=== PATIENT | male | born 1965 | race African-American/Black ===

== ENCOUNTER 2019-03-05 08:09 | Emergency (ER) | payer OTHER ==
[2019-03-05] MEDS ORDERED: IBUPROFEN 400 MG TAB ONE (08:35)
[2019-03-05] MEDS ORDERED: ACETAMINOPHEN 325 MG TABLET ONE (08:35)
--- NOTE | 2019-03-05 09:25 | ER ---
Nurse's Notes [facility] Name: Serena Marcelo Age: 53 yrs Sex: Male : 1965 Arrival Date: 03/05/2019 Time: 08:11 Bed 20 Private MD: Gurwinder Plascencia H Diagnosis: Pain in right knee Presentation: 03/05 08:24 Acuity: JEREMIAH 4 ss 08:25 Presenting complaint: Patient states: was playing basketball last night and heard a pop em in the right knee, denies other injuries. Transition of care: patient was not received from another setting of care. Onset of symptoms was March 04, 2019. Risk Assessment: Do you want to hurt yourself or someone else? Patient reports no desire to harm self or others. Initial Sepsis Screen: Does the patient meet any 2 criteria? No. Patient's initial sepsis screen is negative. Does the patient have a suspected source of infection? No. Patient's initial sepsis screen is negative. Care prior to arrival: 08:25 Method Of Arrival: Wheelchair em Historical: - Allergies: 08:29 No Known Allergies; em - Home Meds: 08:29 Lisinopril Oral [Active]; Allopurinol Oral [Active]; em - PMHx: 08:29 Hypertension; Gout; em - PSHx: 08:29 Left wrist sx; Left knee sx; em - Immunization history:: Adult Immunizations up to date. - Social history:: Smoking status: Patient/guardian denies using tobacco. - Ebola Screening: : Patient negative for fever greater than or equal to 101.5 degrees Fahrenheit, and additional compatible Ebola Virus Disease symptoms Patient denies exposure to infectious person Patient denies travel to an Ebola-affected area in the 21 days before illness onset No symptoms or risks identified at this time. Screenin:32 Abuse screen: Denies threats or abuse. Nutritional screening: No deficits noted. em Tuberculosis screening: No symptoms or risk factors identified. Fall Risk None identified. Assessment: 08:29 General: Appears in no apparent distress. comfortable, Behavior is calm, cooperative. em Pain: Complains of pain in right knee Pain currently is 6 out of 10 on a pain scale. Aggravated by exercise, increased activity, weight bearing. Neuro: Level of Consciousness is awake, alert, obeys commands, Oriented to person, place, time, situation, Appropriate for age. Cardiovascular: Capillary refill < 3 seconds Patient's skin is warm and dry. Respiratory: Airway is patent Respiratory effort is even, unlabored, Respiratory pattern is regular, symmetrical. Derm: Skin is intact, is healthy with good turgor, Skin is pink, warm \T\ dry. Musculoskeletal: Capillary refill < 3 seconds, Range of motion: limited in right knee Swelling present in right knee. 08:35 General: The previous assessment is accurate, call light remains within reach. . ss Vital Signs: 08:29 BP 125 / 84; Pulse 81; Resp 18; Temp 98.4(O); Pulse Ox 96% on R/A; Weight 149.69 kg; em Height 6 ft. 4 in. (193.04 cm); Pain 6/10; 08:29 Body Mass Index 40.17 (149.69 kg, 193.04 cm) em ED Course: 08:11 Patient arrived in ED. as 08:11 Gurwinder Plascencia DO is Private Physician. as 08:18 Ted Alejo LVN is Primary Nurse. em 08:22 Maximus Lyon PA is PHCP. cp 08:22 Satya Esparza MD is Attending Physician. cp 08:24 Triage completed. ss 08:29 Arm band placed on. em 08:32 Patient has correct armband on for positive identification. Bed in low position. Call em light in reach. Pulse ox on. NIBP on. 08:48 X-ray completed. Portable x-ray completed in exam room. Patient tolerated procedure mh1 well. 08:49 XRAY Knee RIGHT 3 view In Process Unspecified. EDMS 09:24 Ferdinand Martinez MD is Referral Physician. cp 09:24 Referral Physician role handed off by Ferdinand Martinez MD cp 09:24 Ferdinand Martinez MD is Referral Physician. cp 09:29 No provider procedures requiring assistance completed. Patient did not have IV access em during this emergency room visit. Administered Medications: 08:38 Drug: Ibuprofen 800 mg Route: PO; em 09:24 Follow up: Response: No adverse reaction; Pain is decreased em 08:38 Drug: Tylenol 650 mg Route: PO; em 09:24 Follow up: Response: No adverse reaction; Pain is decreased em Outcome: 09:25 Discharge ordered by . cp 09:29 Discharged to home via wheelchair. em 09:29 Condition: good 09:29 Discharge instructions given to patient, Instructed on discharge instructions, follow up and referral plans. medication usage, crutch walking, Demonstrated understanding of instructions, follow-up care, medications, crutch walking, Prescriptions given X 2. 09:36 Patient left the ED. em Signatures: Dispatcher [employer] EDAL Ivy Henriquez [facility] Ted Alejo, LEATHER SOFTENER LEATHER SOFTENER Natalya Turner Shelby, DIMITRY RN ss Maximus Lyon, PA PA cp
--- NOTE | 2019-03-05 09:26 | EDPHYS ---
Physician Documentation [facility] Name: Serena Marcelo Age: 53 yrs Sex: Male : 1965 Arrival Date: 03/05/2019 Time: 08:11 Bed 20 Private MD: Gurwinder Plascencia H ED Physician Satya Esparza HPI: 03/05 08:40 This 53 yrs old Black Male presents to ER via Wheelchair with complaints of Knee Injury.cp 08:40 The patient presents with decreased range of motion, an injury. The complaints affect cp the right knee. Context: resulted from playing sports, basketball, the patient can fully bear weight, the patient is able to ambulate, with moderate difficulty. 08:40 Onset: The symptoms/episode began/occurred yesterday. Modifying factors: the symptoms cp are aggravated by movement, bending knee. Associated signs and symptoms: Pertinent negatives calf tenderness, fever, numbness, warmth, weakness. Treatment prior to arrival includes: no previous treatment. Historical: - Allergies: 08:29 No Known Allergies; em - Home Meds: 08:29 Lisinopril Oral [Active]; Allopurinol Oral [Active]; em - PMHx: 08:29 Hypertension; Gout; em - PSHx: 08:29 Left wrist sx; Left knee sx; em - Immunization history:: Adult Immunizations up to date. - Social history:: Smoking status: Patient/guardian denies using tobacco. - Ebola Screening: : Patient negative for fever greater than or equal to 101.5 degrees Fahrenheit, and additional compatible Ebola Virus Disease symptoms Patient denies exposure to infectious person Patient denies travel to an Ebola-affected area in the 21 days before illness onset No symptoms or risks identified at this time. ROS: 08:45 Constitutional: Negative for body aches, chills, fever, poor PO intake. cp 08:45 Eyes: Negative for injury, pain, redness, and discharge. cp 08:45 ENT: Negative for drainage from ear(s), ear pain, sore throat, difficulty swallowing, difficulty handling secretions. 08:45 Cardiovascular: Negative for chest pain, palpitations. 08:45 Respiratory: Negative for cough, shortness of breath, wheezing. 08:45 Abdomen/GI: Negative for abdominal pain, nausea, vomiting, and diarrhea. 08:45 Back: Negative for pain at rest, pain with movement. 08:45 MS/extremity: Positive for pain, tenderness, of the right knee, Negative for decreased range of motion, deformity, paresthesias, rash. 08:45 Skin: Negative for cellulitis. 08:45 All other systems are negative. Exam: 08:55 Constitutional: The patient appears in no acute distress, alert, awake, non-toxic, well cp developed, well nourished, obese. 08:55 Head/Face: Normocephalic, atraumatic. cp 08:55 Eyes: Periorbital structures: appear normal, Conjunctiva: normal, no exudate, no injection, Sclera: no appreciated abnormality, Lids and lashes: appear normal, bilaterally. 08:55 ENT: External ear(s): are unremarkable, Nose: is normal, Mouth: is normal. 08:55 Chest/axilla: Inspection: normal, Palpation: is normal, no crepitus, no tenderness. 08:55 Cardiovascular: Rate: normal, Rhythm: regular, Edema: JVD: is not appreciated. 08:55 Respiratory: the patient does not display signs of respiratory distress. 08:55 Abdomen/GI: Inspection: abdomen appears normal, Palpation: soft, in all quadrants. 08:55 Back: pain, is absent, ROM is normal. 08:55 Musculoskeletal/extremity: ROM: limited passive range of motion due to pain, right knee, Perfusion: the extremity is normally perfused throughout, Sensation intact. Joints: All joints are normal except the right knee displays pain at rest, painful range of motion, swelling, tenderness. 08:55 Skin: cellulitis, is not appreciated, no rash present. Vital Signs: 08:29 BP 125 / 84; Pulse 81; Resp 18; Temp 98.4(O); Pulse Ox 96% on R/A; Weight 149.69 kg; em Height 6 ft. 4 in. (193.04 cm); Pain 6/10; 08:29 Body Mass Index 40.17 (149.69 kg, 193.04 cm) em Procedures: 09:23 Crutch training provided to patient and/or family. Return demonstration given. cp MDM: 08:27 Patient medically screened. cp 09:00 Differential diagnosis: dislocation, closed fracture, contusion, tendonitis. cp 09:20 Data reviewed: vital signs, nurses notes, EMS record, radiologic studies, plain films. cp Test interpretation: by ED physician or midlevel provider: plain radiologic studies, xrays of left knee negative for fracture. 09:23 Counseling: I had a detailed discussion with the patient and/or guardian regarding: the cp historical points, exam findings, and any diagnostic results supporting the discharge/admit diagnosis, radiology results, the need for outpatient follow up, a orthopedic surgeon, to return to the emergency department if symptoms worsen or persist or if there are any questions or concerns that arise at home. Response to treatment: the patient's symptoms have markedly improved after treatment, and as a result, I will discharge patient. 03/05 08:33 Order name: XRAY Knee RIGHT 3 view cp Administered Medications: 08:38 Drug: Ibuprofen 800 mg Route: PO; em 09:24 Follow up: Response: No adverse reaction; Pain is decreased em 08:38 Drug: Tylenol 650 mg Route: PO; em 09:24 Follow up: Response: No adverse reaction; Pain is decreased em Disposition: 03/05/19 09:25 Discharged to Home. Impression: Pain in right knee. - Condition is Stable. - Discharge Instructions: Knee Pain. - Prescriptions for Naprosyn 500 mg Oral Tablet - take 1 tablet by ORAL route 2 times per day take with food; 20 tablet. Tramadol 50 mg Oral Tablet - take 1 tablet by ORAL route every 8 hours as needed; 15 tablet. - Medication Reconciliation Form, Thank You Letter, Antibiotic Education, Prescription Opioid Use form. - Follow up: Ferdinand Martinez MD; When: 2 - 3 days; Reason: Worsening of condition. Follow up: Ferdinand Martinez MD; When: 5 - 6 days; Reason: Worsening of condition. - Problem is new. - Symptoms have improved. Signatures: Dispatcher [employer] EDTed Honeycutt LVN ELECTRONIC OPERATOR em Sonali, JOSE Stroud cp Corrections: (The following items were deleted from the chart) 09:36 09:25 03/05/2019 09:25 Discharged to Home. Impression: Pain in right knee. Condition is em Stable. Forms are Medication Reconciliation Form, Thank You Letter, Antibiotic Education, Prescription Opioid Use. Follow up: Ferdinand Martinez; When: 5 - 6 days; Reason: Worsening of condition. Problem is new. Symptoms have improved. cp 03/06 07:42 07:39 MS/extremity: Positive for pain, swelling, tenderness, of the right knee, cp cp 07:42 07:39 Constitutional: Negative for body aches, chills, fever, poor PO intake, cp cp 07:42 07:39 Eyes: Negative for injury, pain, redness, and discharge, cp cp 07:42 07:39 ENT: Negative for drainage from ear(s), ear pain, sore throat, difficulty cp swallowing, difficulty handling secretions, cp 07: 07:39 Cardiovascular: Negative for chest pain, palpitations, cp cp 07:42 07:39 Respiratory: Negative for cough, shortness of breath, wheezing, cp cp : 07:39 Abdomen/GI: Negative for abdominal pain, cp cp : 07:39 All other systems are negative, cp cp
--- NOTE | 2019-03-05 09:41 | RAD REPORT ---
EXAM DESCRIPTION: RAD - Knee Right 3 View - 03/05/2019 8:54 am CLINICAL HISTORY: Right knee pain status post injury FINDINGS: Marked osteoarthritis involves the right consisting joint space narrowing and osteophytes. Bone on bone is noted. No bony density along the lateral aspect of the knee may be a loose body Joint effusion is present. Edema within the subcutaneous tissues No acute fracture or dislocation seen. If patient continues to have symptoms to suggest a ligamentous, tendon or meniscal injury or an occul t fracture then MRI would be recommended
[2019-03-05 09:42] VITALS: BP 125/84; TEMP 98.4; O2SAT 96
== END 2019-03-05 09:36 | disposition home or self-care (01) ==
LOC: ER 08:09
DX: M25.561 Pain in right knee (principal); I10 Essential (primary) hypertension; M10.9 Gout, unspecified
CPT/HCPCS: 99284

== ENCOUNTER 2019-10-04 09:12 | Emergency (ER) | payer OTHER ==
[2019-10-04] MEDS ORDERED: TETRACAINE HCL 0.5% 4ML OPTH ONE (09:48)
[2019-10-04] MEDS ORDERED: FLUORESCEIN SODIUM 1 MG/WRAP ONE (09:48)
[2019-10-04] MEDS ORDERED: TOBRAMYCIN SULF 0.3% OPTH OINT ONE (10:06)
--- OUTSIDE RECORDS SUMMARY | 2019-10-04 10:11 | XMS REPORT ---
:1965 Author Organization [employer] Care Team Providers Name Role Phone Owen Villeda Provider Role Unavailable Allergies, Adverse Reactions, Alerts Substance Reaction Event Type N.K.D.A. Info Not Available Non Drug Allergy Problems Problem Type Condition Code Onset Dates Condition Statu s Assessment Right knee pain, unspecified M25.561 Active chronicity Problem Primary osteoarthritis of right M17.11 Active knee Assessment Primary osteoarthritis of right M17.11 Active knee Assessment Sprain of other ligament of right S83.8X1A Active knee, initial encounter Medications Medication Code System Code Instructions Start Date End Date Status Dosage Lisinopril [facility] 80654-125 Active not defined 1- Amoxicillin [facility] 99155-586 Active not define d 1- Metoprolol [facility] 0 Active not defined Tartrate Sildenafil [facility] 66846-924 Active not defined Citrate 6-13 Acetaminophen-Co [facility] 49213-105 Active not d efined deine 4-00 Belviq [facility] 74076-149 Active not defined 9-60 Results No Known Results Summary Purpose [employer]Works Submission
--- OUTSIDE RECORDS SUMMARY | 2019-10-04 10:11 | XMS REPORT ---
:1965 Author Organization [employer] Care Team Providers Name Role Phone Owen Villeda Provider Role Unavailable Allergies No Known Allergies Problems Problem Type Condition Code Onset Dates Condition Statu s Problem Primary osteoarthritis of right knee M17.11 Active Medications No Known Medications Results No Known Results Summary Purpose [employer]Works Submission
--- OUTSIDE RECORDS SUMMARY | 2019-10-04 10:11 | XMS REPORT ---
[...] Instructions Start Date End Date Status Dosage Belviq [facility] 88448-004 Active not defined 9-60 Lisinopril [facility] 78701-496 Active not defined 1-01 Metoprolol [facility] 0 Active not defined Tartrate Acetaminophen-Co [facility] 37338-258 Active not d efined deine 4-00 Sildenafil [facility] 30813-009 Active not defined Citrate 6-13 Amoxicillin [facility] 99731-838 Active not define d 1-73 Results No Known Results Summary Purpose eClinicalWorks Submission
--- OUTSIDE RECORDS SUMMARY | 2019-10-04 10:11 | XMS REPORT ---
:1965 Author Organization [facility] t Address [address] [place] [address] Care Team Providers Name Role Phone Unavailable Unavailable Unavailable Problems Condition Condition Condition Status Onset Resolution Last Treating Co mments Source Name Details Category Date Date Treatment Clinician Date Primary Primary Problem Active [facility] oste[facility]r Lucy [facility] Allergies, Adverse Reactions, Alerts This patient has no known allergies or adverse reactions. Medications Ordered Filled Start Stop Current Ordering Indication Dosage Frequency Signature Comments Components Source Medication Medication Date Date Medication? Clinician (SIG) Name Name Lisinopril Lisinopril Yes Owen not [facility] defined [facility] Amoxicillin Amoxicillin Yes Owen not [facility]illed[facility] defined [facility] Metoprolol Metoprolol Yes Owen not [facility] Tartrate Tartrate [facility] defined [facility] Sildenafil Sildenafil Yes Owen not [facility] Citrate Citrate [facility] Acetaminoph Acetaminoph Yes Owen not [facility] en-Codeine en-Codeine [facility] defined [facility] Belviq Belviq Yes Owen not [facility] defined [facility] Procedures This patient has no known procedures. Encounters Start End Encounter Admission Attending Care Care Encounter Source Date/Time Date/Time Type Type Clinicians Facility Department ID 2019-06-15 2019-06-15 Outpatient Tracey Scott [id number] [facility] 13:18[facility] 13[facility]18[facility] 2019-04-11 2019-04-11 Outpatient Tracey Webbt [id number] [facility] 11:52:00 11:52:00 [facility] 2019-04-05 2019-04-05 Outpatient Tracey Scott [id number] [facility] 10[facility]26:00 10:26:00 [facility] 2019-04-03 2019-04-03 Outpatient Tracey Scott [id number] [facility] 14:00:00 14:00[facility]00 [facility] 2019-03-21 2019-03-21 Outpatient Tracey Scott [id number] [facility] 11:48:00 11:48:00 [facility] 2019-03-20 2019-03-20 Outpatient Tracey Scott [id number] [facility] 08:00:00 08:00:00 [facility] Results This patient has no known results.
--- NOTE | 2019-10-04 10:16 | ER ---
Nurse's Notes [facility] Name: Serena Marcelo Age: 53 yrs Sex: Male : 1965 Arrival Date: 10/04/2019 Time: 09:15 Bed 5 Private MD: Diagnosis: Hordeolum internum left upper eyelid Presentation: 10/03 09:32 Chief complaint: Patient states: woke up and felt like there was something in his left iw eyelid. Coronavirus screen: Proceed with normal triage. Patient denies a cough. Patient denies shortness of breath or difficulty breathing. Patient denies measured and/or subjective temperature greater than 100.4F prior to today's visit. Patient denies travel on a cruise ship or to a country the [facility] currently lists as an affected area. Patient denies contact with known and/or suspected case of COVID-19. Ebola Screen: Patient negative for fever greater than or equal to 101.5 degrees Fahrenheit, and additional compatible Ebola Virus Disease symptoms Patient denies exposure to infectious person. Patient denies travel to an Ebola-affected area in the 21 days before illness onset. No symptoms or risks identified at this time. Initial Sepsis Screen: Does the patient meet any 2 criteria? No. Patient's initial sepsis screen is negative. Does the patient have a suspected source of infection? No. Patient's initial sepsis screen is negative. Risk Assessment: Do you want to hurt yourself or someone else? Patient reports no desire to harm self or others. Onset of symptoms was October 04, 2019. 09:32 Method Of Arrival: Ambulatory iw 09:32 Acuity: JEREMIAH 4 iw Historical: - Allergies: 09:28 No Known Allergies; ph - Home Meds: 09:36 Lisinopril Oral once daily [Active]; iw - PMHx: 09:28 Gout; Hypertension; ph - PSHx: 09:28 Left wrist sx; Left knee sx; ph - Immunization history:: Adult Immunizations not up to date. - Social history:: Smoking status: Patient denies any tobacco usage or history of. Screenin:27 Abuse screen: Denies threats or abuse. Denies injuries from another. Nutritional ph screening: No deficits noted. Tuberculosis screening: No symptoms or risk factors identified. Fall Risk None identified. Assessment: 10:05 General: Appears in no apparent distress. comfortable, well groomed, Behavior is calm, ph cooperative, appropriate for age, Denies fever. Pain: Complains of pain in left eye. Neuro: Level of Consciousness is awake, alert, obeys commands, Oriented to person, place, time, situation. Cardiovascular: No deficits noted. Respiratory: No deficits noted. EENT: Reports pain in left eye Denies blurred vision photophobia. Derm: Skin is intact, is healthy with good turgor, Skin is pink, warm \T\ dry. Musculoskeletal: No deficits noted. 10:32 Reassessment: Patient appears in no apparent distress at this time. Patient and/or ph family updated on plan of care and expected duration. Pain level reassessed. Patient is alert, oriented x 3, equal unlabored respirations, skin warm/dry/pink. Pt d/c home. Vital Signs: 09:32 BP 146 / 113; Pulse 82; Resp 16 S; Temp 98.2; Pulse Ox 98% on R/A; Weight 145.15 kg; iw Height 6 ft. 4 in. (193.04 cm); 10:06 BP 154 / 98; Pulse 81; Resp 18; Temp 97.9; Pulse Ox 96% on R/A; ph 09:32 Body Mass Index 38.95 (145.15 kg, 193.04 cm) iw ED Course: 09:15 Patient arrived in ED. as 09:27 Ellen Blas, RN is Primary Nurse. ph 09:27 Patient has correct armband on for positive identification. Bed in low position. Call ph light in reach. Side rails up X 1. Pulse ox on. NIBP on. Door closed. Noise minimized. 09:31 Mirtha Osman FNP-C is PHCP. kb 09:31 Antonio Moreland MD is Attending Physician. kb 09:32 Arm band placed on. iw 09:35 Triage completed. iw 10:35 No provider procedures requiring assistance completed. Patient did not have IV access ph during this emergency room visit. Administered Medications: 10:03 Drug: Tetracaine Drops 0.5 % 1 drops Route: Ophthalmic; Site: left eye; ph 10:03 Follow up: Response: No adverse reaction ph 10:03 Drug: Fluorescein Strip 1 strip Route: Ophthalmic; Site: left eye; ph 10:03 Follow up: Response: No adverse reaction ph 10:04 Drug: Tobramycin Ointment (0.3 %) 1 application Route: Ophthalmic; Site: left eye; ph 10:04 Follow up: Response: No adverse reaction ph Outcome: 10:16 Discharge ordered by . kb 10:36 Discharged to home ambulatory. ph 10:36 Condition: stable 10:36 Discharge instructions given to patient, Instructed on discharge instructions, follow up and referral plans. Demonstrated understanding of instructions, follow-up care. 10:36 Patient left the ED. ph Signatures: Mirtha Osman, CRIB TENDER-C JUDSON-Natalya Tan as Keily Emerson, DIMITRY RN iw Ellen Blas RN RN ph
--- NOTE | 2019-10-04 10:16 | EDPHYS ---
Physician Documentation [facility] Name: Serena Marcelo Age: 53 yrs Sex: Male : 1965 Arrival Date: 10/04/2019 Time: 09:15 Bed 5 Private MD: ED Physician Antonio Moreland HPI: 10/03 09:43 This 53 yrs old Black Male presents to ER via Ambulatory with complaints of Foreign kb Body In Eye. 09:43 The patient is experiencing foreign body sensation, pain, The patient sustained None. kb to the left eye, caused by an unknown mechanism. Onset: The symptoms/episode began/occurred this morning. Duration: the symptoms are continuous. Aggravated by opening eye, Alleviated by nothing. Associated signs and symptoms: Pertinent positives: None. Pertinent negatives: None. Severity of symptoms: At their worst the symptoms were moderate in the emergency department the symptoms are unchanged. The patient has not experienced similar symptoms in the past. The patient has not recently seen a physician. Pt reports he woke up with the feeling that something was in his left eye. States he tried flushing it out, which helped for a few minutes, but feeling returned. . Historical: - Allergies: 09:28 No Known Allergies; ph - Home Meds: 09:36 Lisinopril Oral once daily [Active]; iw - PMHx: 09:28 Gout; Hypertension; ph - PSHx: 09:28 Left wrist sx; Left knee sx; ph - Immunization history:: Adult Immunizations not up to date. - Social history:: Smoking status: Patient denies any tobacco usage or history of. ROS: 09:42 Constitutional: Negative for fever, chills, and weight loss, Cardiovascular: Negative kb for chest pain, palpitations, and edema, Respiratory: Negative for shortness of breath, cough, wheezing, and pleuritic chest pain, Abdomen/GI: Negative for abdominal pain, nausea, vomiting, diarrhea, and constipation, Back: Negative for injury and pain, MS/Extremity: Negative for injury and deformity, Skin: Negative for injury, rash, and discoloration, Neuro: Negative for headache, weakness, numbness, tingling, and seizure. 09:42 Eyes: Positive for foreign body sensation, pain, of the left eye. Exam: 09:42 Constitutional: This is a well developed, well nourished patient who is awake, alert, kb and in no acute distress. Head/Face: Normocephalic, atraumatic. Neck: Trachea midline, no thyromegaly or masses palpated, and no cervical lymphadenopathy. Supple, full range of motion without nuchal rigidity, or vertebral point tenderness. No Meningismus. Chest/axilla: Normal chest wall appearance and motion. Nontender with no deformity. No lesions are appreciated. Cardiovascular: Regular rate and rhythm with a normal S1 and S2. No gallops, murmurs, or rubs. Normal PMI, no JVD. No pulse deficits. Respiratory: Lungs have equal breath sounds bilaterally, clear to auscultation and percussion. No rales, rhonchi or wheezes noted. No increased work of breathing, no retractions or nasal flaring. Abdomen/GI: Soft, non-tender, with normal bowel sounds. No distension or tympany. No guarding or rebound. No evidence of tenderness throughout. Back: No spinal tenderness. No costovertebral tenderness. Full range of motion. Skin: Warm, dry with normal turgor. Normal color with no rashes, no lesions, and no evidence of cellulitis. MS/ Extremity: Pulses equal, no cyanosis. Neurovascular intact. Full, normal range of motion. Neuro: Awake and alert, GCS 15, oriented to person, place, time, and situation. Cranial nerves II-XII grossly intact. Motor strength 5/5 in all extremities. Sensory grossly intact. Cerebellar exam normal. Normal gait. 10:03 Eyes: Periorbital structures: appear normal, no cellulitis, no erythema, no swelling, kb Pupils: equal, round, and reactive to light and accomodation, Extraocular movements: intact throughout, Conjunctiva: normal, Corneas: are normal, no evidence of abrasion, no foreign body, Lids and lashes: stye, on the left lid, internal, medial aspect of upper lid. Vital Signs: 09:32 BP 146 / 113; Pulse 82; Resp 16 S; Temp 98.2; Pulse Ox 98% on R/A; Weight 145.15 kg; iw Height 6 ft. 4 in. (193.04 cm); 10:06 BP 154 / 98; Pulse 81; Resp 18; Temp 97.9; Pulse Ox 96% on R/A; ph 09:32 Body Mass Index 38.95 (145.15 kg, 193.04 cm) iw MDM: 09:31 Patient medically screened. kb 09:42 Data reviewed: vital signs, nurses notes. Data interpreted: Pulse oximetry: on room air kb is 98 %. Interpretation: normal. 10:13 Counseling: I had a detailed discussion with the patient and/or guardian regarding: the kb historical points, exam findings, and any diagnostic results supporting the discharge/admit diagnosis, the need for outpatient follow up, an opthalmologist, to return to the emergency department if symptoms worsen or persist or if there are any questions or concerns that arise at home. 10/03 09:38 Order name: Eye Tray; Complete Time: 09:41 kb Administered Medications: 10:03 Drug: Tetracaine Drops 0.5 % 1 drops Route: Ophthalmic; Site: left eye; ph 10:03 Follow up: Response: No adverse reaction ph 10:03 Drug: Fluorescein Strip 1 strip Route: Ophthalmic; Site: left eye; ph 10:03 Follow up: Response: No adverse reaction ph 10:04 Drug: Tobramycin Ointment (0.3 %) 1 application Route: Ophthalmic; Site: left eye; ph 10:04 Follow up: Response: No adverse reaction ph Disposition: 10/04 09:06 Co-signature as Attending Physician, Antonio Moreland MD I agree with the assessment and kdr plan of care. Disposition: 10/04/19 10:16 Discharged to Home. Impression: Hordeolum internum left upper eyelid. - Condition is Stable. - Discharge Instructions: Stye. - Medication Reconciliation Form, Thank You Letter, Antibiotic Education, Prescription Opioid Use form. - Follow up: Private Physician; When: 2 - 3 days; Reason: Recheck today's complaints, Continuance of care, Re-evaluation by your physician. Follow up: Emergency Department; When: As needed; Reason: Worsening of condition. Signatures: iMrtha Osman, [employer]PERVISOR-C JUDSON-Antonio Luther MD MD kdr Keily Emerson, DIMITRY RN iw Ellen Blas RN RN ph Corrections: (The following items were deleted from the chart) 10/03 10:36 10:16 10/04/2019 10:16 Discharged to Home. Impression: Hordeolum internum left upper ph eyelid. Condition is Stable. Forms are Medication Reconciliation Form, Thank You Letter, Antibiotic Education, Prescription Opioid Use. Follow up: Private Physician; When: 2 - 3 days; Reason: Recheck today's complaints, Continuance of care, Re-evaluation by your physician. Follow up: Emergency Department; When: As needed; Reason: Worsening of condition. kb
[2019-10-04 10:42] VITALS: BP 154/98; TEMP 97.9; O2SAT 96
== END 2019-10-04 10:36 | disposition home or self-care (01) ==
LOC: ER 09:12
DX: H00.024 Hordeolum internum left upper eyelid (principal); I10 Essential (primary) hypertension
CPT/HCPCS: 99283

== ENCOUNTER 2023-05-05 07:24 | Day surgery (SDC) | payer OTHER ==
[2023-05-04 15:28] LABS: Absolute Lymphocytes (CBC) 3.5 K/uL (0.7-4.9); Hematocrit 42.4 % (39.6-49.0); Lymphocytes % 45.2 % (15.3-44.8); MCV 92.6 fL (80-100); MPV 7.5 fL (7.6-11.3); Platelets 277 thou/uL (152-406); RBC Red Blood Cell Count 4.58 M/uL (4.33-5.43)
[2023-05-04 15:39] LABS: Potassium 3.8 mEq/L (3.5-5.1)
--- NOTE | 2023-05-04 15:54 | RAD REPORT ---
EXAM DESCRIPTION: RAD - Chest Pa And Lat (2 Views) - 05/04/2023 3:38 pm CLINICAL HISTORY: Pre op pending skin mass excision Chest pain. COMPARISON: <Comparisons> FINDINGS: The lungs are clear. The heart is mildly enlarged in size. No displaced fractures. IMPRESSION: No acute or concerning finding suspected. The USPSTF recommends annual screening for lung cancer with low-dose CT (LDCT) in adults aged 50 to 8 0 years who have a 20 pack-year smoking history and currently smoke or have quit within the past 15 y ears.
[2023-05-05] MEDS ORDERED: CEFAZOLIN SODIUM 1 GM/VIAL ONE (07:40)
[2023-05-05] MEDS ORDERED: BUPIVACAINE 0.5% PF 10 ML VIAL ONE (07:51)
[2023-05-05] MEDS ORDERED: KETOROLAC 30 MG/ML INJ ONE (07:54)
[2023-05-05] MEDS ORDERED: LIDOCAINE 2% MPF 5 ML VIAL ONE (07:54)
[2023-05-05] MEDS ORDERED: MIDAZOLAM HCL 2 MG/2 ML INJ ONE (07:55)
[2023-05-05] MEDS ORDERED: propofoL 200 MG/20 ML VIAL IV ONE ×3 (07:55→09:02)
[2023-05-05] MEDS: Ringers Lactate 1,000 ML IV ONE ×2 (08:25→08:40)
--- NOTE | 2023-05-05 09:28 | P.BOP ---
Preoperative diagnosis: Tender Left thigh skin/subQ mass Postoperative diagnosis: same Primary procedure: Excisional biopsy of Left thigh subQ mass 3x3cm Estimated blood loss: <10cc Specimen: mass Findings: SubQ mass with skin mass component Anesthesia: General Complications: None Transferred to: Recovery Room Condition: Good
[2023-05-05 10:26] VITALS: BP 114/66; TEMP 98.3; O2SAT 98
--- NOTE | 2023-05-05 12:52 | EKG ---
Test Date: 2023-05-04 Test Time: 15:10:13 Clipper Machine Operator: ROMA MEASUREMENT RESULTS: Intervals: Rate: 63 NH: 186 QRSD: 90 QT: 398 QTc: 407 [place]: P: 53 NH: 186 QRS: 43 T: 37 INTERPRETIVE STATEMENTS: Normal sinus rhythm Possible Left atrial enlargement Nonspecific T wave abnormality Abnormal ECG Compared to ECG 05/06/2017 15:23:34 T-wave abnormality now present Electronically Signed On 05-05-23 12:49:31 DUCT LAYER by Wayne Rogesr
--- NOTE | 2023-05-05 16:05 | OP ---
Date of Procedure: 05/05/2023 Surgeon: Jose Lambert MD Preoperative Diagnosis: Tender left inner thigh subcutaneous/skin mass, has a subcutaneous and skin component. Postoperative Diagnosis: Tender left inner thigh subcutaneous/skin mass, has a subcutaneous and skin component. Procedure: Excisional biopsy of left thigh subcutaneous mass 3 x 3 cm. Estimated Blood Loss: Less than 10 cc. Specimen: Mass. Findings: Patient had this mass that goes through the skin, but once we go inside we noticed this or iginates in the subcutaneous tissue. Mass was completely excised all the way down to deep subcutaneo us tissue. Anesthesia: General plus local. Complications: None. Estimated Blood Loss: Less than 10 cc. Indication: This is a case of a 57-year-old patient who came to us with a mass on the left inner thi gh. It is giving him pain and discomfort. It is getting bigger in size, sometimes it bleeds, ulcera te. It is bothering him with the other thigh too. The benefits, alternatives, and risks of wide exc ision fully explained, which include, but not limited to, infection, bleeding, damage to adjacent str uctures, anesthesia complication, recurrence, [place], and even . He also understands this may not r elieve any symptoms. He might need more than one surgical intervention. He does not want to have it in the office. He wants to have anesthesia to be able to do this and sedation. So he came today fo r surgery. Description Of Procedure: Patient was brought to the operating room, placed in supine position. Ane sthesia was done without complication. The area of concern was previously marked by me and the patie nt in the holding room. We made a wedge incision on the skin and when we went in, we noticed this ma ss extending to the subcutaneous tissue. In fact, I believe, originating from there. So, we went in the subcutaneous tissue until the mass was completely excised. Area was irrigated. Hemostasis was obtained. Then, we closed the deep layers with 3-0 chromic after irrigation and local anesthetic and then the skin with nylon. Sponge count instrument counts were correct. Patient tolerated the proce dure well. Patient was sent to Recovery in stable condition. The mass was about 3 cm. HM/MODL Voice ID: [id number] Report ID: [id number]
--- NOTE | 2023-05-05 16:05 | DS ---
Date of Discharge: 05/05/2023 Diagnosis: Tender left thigh subcutaneous mass. Procedure: Excisional biopsy of tender left thigh subcutaneous mass. Disposition: Home. Activity: As tolerated. No heavy lifting. Plan: Follow up in my office in 1 week. Call for appointment at [phone]. Keep area dry for 48 elke rs, then may remove outer dressings and shower. Apply topical antibiotic ointment and a Band-Aid. ROMINA/NASREEN Voice ID: [id number] Report ID: [id number]
== END 2023-05-05 10:49 | disposition home or self-care (01) ==
LOC: OR 07:24
PROVIDERS: ATTEND Surgery
PROC: 0JBM0ZZ Excision of Left Upper Leg Subcutaneous Tissue and Fascia, Open Approach (ICD-10-PCS; principal; 2023-05-05 09:00)
DX: D17.24 Benign lipomatous neoplasm of skin and subcutaneous tissue of left leg (principal); I10 Essential (primary) hypertension
CPT/HCPCS: 93005; 85025; 80048; 36415; 88304; 71046; 11403; J2704 ×3; J2001; J2250; J7120; J0690; 88305